=== PATIENT | female | born 1995 | race Caucasian/White ===

== ENCOUNTER 2017-01-13 10:16 | Emergency (ER) | payer OTHER ==
[2017-01-13 10:35] VITALS: BP 136/85
--- NOTE | 2017-01-13 10:42 | EDM.PDOC ---
ED HPI GENERAL MEDICAL PROBLEM - General Chief Complaint: Cardiovascular Problem Stated Complaint: RACING HEARTBEAT/SHAKY/WEARING A MONITOR Time Seen by Provider: 01/13/17 10:45 Source of Information: Reports: Patient - History of Present Illness INITIAL COMMENTS - FREE TEXT/NARRATIVE: 21-year-old female presents to the ER today for evaluation of palpitations and shortness of breath. Patient reports started approximately one month ago she was on a work trip and has these episodes have occurred intermittently since that time. She reports it has been worsening over the past week. Today's episode began while she was working today at a [employer], she was driven here by her boss. Patient states that she feels short of breath and like her heart is racing. She denies any nausea or diaphoresis. Denies any pain. She denies any chronic medical conditions though does have some anxiety and depression she has been on sertraline for approximately one year. She has been evaluated for these palpitations by Dr. Mejia and does have a Holter monitor on and followup scheduled with her. - Related Data Allergies Allergy/AdvReac Type Severity Reaction Status Date / Time No Known Allergies Allergy Verified 01/13/17 10:31 Home Meds: Home Meds LORazepam [Ativan] 0.5 mg PO BID PRN #20 tablet 01/13/17 [Rx] Sertraline [Zoloft] 100 mg PO DAILY 01/13/17 [History] Past Medical History - Past Health History Medical/Surgical History: Denies Medical/Surgical History Psychiatric History: Reports: Anxiety, Depression - Past Surgical History HEENT Surgical History: Reports: Oral Surgery GI Surgical History: Reports: Appendectomy Social & Family History - Tobacco Use Smoking Status *Q: Current Every Day Smoker Years of Tobacco use: 4 Packs/Tins Daily: 0.5 - Caffeine Use Caffeine Use: Reports: None - Alcohol Use Days Per Week of Alcohol Use: 0 - Recreational Drug Use Recreational Drug Use: No ED ROS GENERAL - Review of Systems Review Of Systems: See Below Constitutional: Reports: Fatigue. Denies: Fever, Chills, Weakness, Diaphoresis , Decreased Appetite, Weight Loss, Weight Gain HEENT: Reports: No Symptoms Respiratory: Reports: Shortness of Breath. Denies: Wheezing, Pleuritic Chest Pain, Cough Cardiovascular: Reports: Dyspnea on Exertion, Lightheadedness, Palpitations. Denies: Chest Pain GI/Abdominal: Reports: No Symptoms : Reports: No Symptoms Skin: Reports: No Symptoms Neurological: Reports: Dizziness. Denies: Confusion, Headache, Numbness, Paresthesia, Tingling, Tremors Psychiatric: Reports: Anxiety, Depression ED EXAM, GENERAL - Physical Exam Exam: See Below Exam Limited By: No Limitations General Appearance: Alert, WD/WN, Anxious, Mild Distress Eye Exam: Right Eye: Normal Inspection, PERRL, Vision Changes Ears: Normal External Exam, Normal Canal, Normal TMs Nose: Normal Inspection, Normal Mucosa, No Blood Throat/Mouth: Normal Inspection, Normal Oropharynx Respiratory/Chest: No Respiratory Distress, Lungs Clear, Normal Breath Sounds Cardiovascular: Normal Peripheral Pulses, Regular Rate, Rhythm, No Edema, No Murmur, No Rub GI/Abdominal: Normal Bowel Sounds, Soft, Non-Tender Neurological: Alert, Oriented, CN II-XII Intact, Normal Cognition, Other ( Patient anxious, becomes tearful when discussing her symptoms) Skin Exam: Warm, Dry, Intact EKG INTERPRETATION EKG Date: 01/13/17 Time: 10:32 Rhythm: NSR P-wave: present QRS: normal ST-T: normal EKG Interpretation Comments: Reviewed with Dr Kay Course - Vital Signs Last Recorded V/S: Last Vital Signs Temp 98.7 F 01/13/17 10:26 Pulse 69 01/13/17 10:26 Resp 22 H 01/13/17 10:26 BP 136/85 01/13/17 10:26 Pulse Ox 100 01/13/17 10:26 - Orders/Labs/Meds Orders: Active Orders 24 hr Category Date Time Status EKG 12 Lead [EKG Documentation Completion] [RC] STAT Care 01/13/17 10:42 Active CXR [Chest 2V] [CR] Stat Exams 01/13/17 10:51 Taken Labs: Laboratory Tests 01/13/17 01/13/17 01/13/17 Range/Units 11:10 11:10 11:10 WBC 7.68 (3.98-10.04) K/mm3 RBC 4.92 (3.98-5.22) M/mm3 Hgb 15.0 (11.2-15.7) gm/L Hct 43.6 (34.1-44.9) % MCV 88.6 (79.4-94.8) fl MCH 30.5 (25.6-32.2) pg MCHC 34.4 (32.2-35.5) g/dl RDW Std Deviation 39.7 (36.4-46.3) fL Plt Count 303 (182-369) K/mm3 MPV 10.7 (9.4-12.3) fl Neutrophils % (Manual) 60 (40-60) % Band Neutrophils % 0 (0-10) % Lymphocytes % (Manual) 37 (20-40) % Atypical Lymphs % 0 % Monocytes % (Manual) 3 (2-10) % Eosinophils % (Manual) 0 L (0.7-5.8) % Basophils % (Manual) 0 L (0.1-1.2) Platelet Estimate Adequate RBC Morph Comment Normal D-Dimer, Quantitative < 0.19 L (0.19-0.59) mg/L Sodium 140 (136-145) mEq/L Potassium 3.7 (3.5-5.1) mEq/L Chloride 107 (98-107) mEq/L Carbon Dioxide 22 (21-32) mEq/L Anion Gap 14.7 (5-15) BUN 7 (7-18) mg/dL Creatinine 0.8 (0.55-1.02) mg/dL Est Cr Clr Drug Dosing 95.25 mL/min Estimated GFR (MDRD) > 60 (>60) mL/min BUN/Creatinine Ratio 8.8 L (14-18) Glucose 96 (74-106) mg/dL Calcium 9.6 (8.5-10.1) mg/dL Total Bilirubin 0.5 (0.2-1.0) mg/dL AST 21 (15-37) U/L ALT 54 (14-59) U/L Alkaline Phosphatase 46 (46-116) U/L Troponin I < 0.017 (0.00-0.056) ng/mL C-Reactive Protein < 0.2 (<1.0) mg/dL Total Protein 7.8 (6.4-8.2) g/dl Albumin 4.4 (3.4-5.0) g/dl Globulin 3.4 gm/dL Albumin/Globulin Ratio 1.3 (1-2) Ethyl Alcohol 0.01 (0.00) gm% Meds: Medications Discontinued Medications Generic Name Dose Route Start Last Admin Trade Name Freq PRN Reason Stop Dose Admin Lorazepam 0.5 mg 01/13/17 10:50 01/13/17 11:06 Ativan PO 01/13/17 10:51 0.5 mg ONETIME ONE Administration - Re-Assessments/Exams Free Text/Narrative Re-Assessment/Exam: Clinical exam was unremarkable, the patient was quite anxious and did become tearful when discussing her symptoms. Chest x-ray will was normal, official report is pending. EKG demonstrates normal sinus rhythm with a rate of 53. CBC/CMP unremarkable. Troponin and d-dimer were negative. ETOH 0.01 and drug screen is still pending. Patient's symptoms completely resolved with 1 mg PO Ativan. Upon recheck she was feeling significantly better and was quite happy and interactive. She states that she finally feels "normal" and like could sleep and reports that she has not been able to do this for several weeks. Discussed with patient that I do feel that her symptoms are triggered by her anxiety. Will give her a small quantity of Ativan to be used on an as-needed basis, risks and side effects of this were discussed at length including addiction and drowsiness. I did advise her to continue wearing her Holter monitor as ordered. Patient is to followup as scheduled with her PCP to discuss long-term treatment of her anxiety. 01/13/17 12:36 Departure - Departure Time of Disposition: 12:28 Disposition: Home, Self-Care 01 Clinical Impression: Anxiety Prescriptions: LORazepam [Ativan] 0.5 mg PO BID PRN #20 tablet PRN Reason: Anxiety Referrals: Alma Fraire MD [Primary Care Provider] - Forms: ED Department Discharge Additional Instructions: Your chest x-ray, EKG and lab work were all normal today. I do suspect that it is your anxiety that is causing your symptoms. You may take the lorazepam prescription provided today on an as-needed basis for severe anxiety. You need to followup with your primary provider to discuss further treatment of the anxiety as these cannot be taken on a regular or long-term basis. Caution driving or operating machinery when taking this medication. Followup with Dr. Mejia as scheduled or certainly return to the ER if symptoms worsen. - My Orders Last 24 Hours: My Active Orders 01/13/17 10:42 EKG 12 Lead [EKG Documentation Completion] [RC] STAT 01/13/17 10:51 CXR [Chest 2V] [CR] Stat - Assessment/Plan Last 24 Hours: My Active Orders 01/13/17 10:42 EKG 12 Lead [EKG Documentation Completion] [RC] STAT 01/13/17 10:51 CXR [Chest 2V] [CR] Stat
[2017-01-13] MEDS ORDERED: LORazepam 0.5 MG Tab PO ONE (10:50)
--- NOTE | 2017-01-13 15:07 | CR ---
Chest: Two views of the chest were obtained. Comparison: No previous chest x-ray. Heart size and mediastinum are normal. Lungs are clear. Bony structures appear within normal limits for the patient's age. Impression: 1. Nothing acute is seen on two-view chest x-ray. Diagnostic code #1
== END 2017-01-13 12:46 | disposition home or self-care (01) ==
LOC: JD.ED 10:16
DX: F41.9 Anxiety disorder, unspecified (principal); F32.9 Major depressive disorder, single episode, unspecified; F17.210 Nicotine dependence, cigarettes, uncomplicated; Z90.49 Acquired absence of other specified parts of digestive tract; Z79.899 Other long term (current) drug therapy
CPT/HCPCS: 36415; 71020; 80053; 84484; 85025; 85379; 86140; 93005; 99285; A9270; G0480; 99283

== ENCOUNTER 2017-03-08 08:40 | Emergency (ER) | payer OTHER ==
[2017-03-08 08:47] VITALS: BP 158/96
[2017-03-08] MEDS ORDERED: diphenhydrAMINE 50 MG/ML SDV IVPUSH ONE (09:35)
[2017-03-08] MEDS ORDERED: Ketorolac 30 MG/ML SDV IVPUSH ONE (09:35)
[2017-03-08] MEDS ORDERED: Prochlorperazine 10 MG/2 ML SDV IVPUSH ONE (09:35)
[2017-03-08] MEDS ORDERED: Sodium Chloride 0.9% 1,000 ML IV ONE (09:36)
--- NOTE | 2017-03-08 09:40 | EDM.PDOC ---
ED HPI GENERAL MEDICAL PROBLEM - General Chief Complaint: Headache Stated Complaint: HEADACHE/STIFF NECK/FEVER MONDAY Time Seen by Provider: 03/08/17 08:52 Source of Information: Reports: Patient History Limitations: Reports: No Limitations - History of Present Illness INITIAL COMMENTS - FREE TEXT/NARRATIVE: The patient is a 21-year-old female with a chief complaint of headache. She states that she has a history of very frequent headaches. She usually gets headaches about 3 times a week. Normally she can control them at home with Excedrin. However today she has a severe headache. She states that she's had it for about 4 days now and it just is not getting better. States that it feels similar to her usual headaches but worse. It starts in the front of her head and moves towards the back of her head and goes down her neck. It's throbbing. Also sharp. Constant. She's had some nausea and 2 episodes of vomiting. Feels like she has some blurry vision. Also has photophobia. No fever or recent illness. No sore throat. She's tried Imitrex and Excedrin with no relief. Headache Pain Score (Numeric/FACES): 6 - Related Data Allergies Allergy/AdvReac Type Severity Reaction Status Date / Time No Known Allergies Allergy Verified 03/08/17 08:47 Home Meds: Home Meds Venlafaxine [Effexor] 75 mg PO DAILY 03/08/17 [History] Past Medical History - Past Health History Medical/Surgical History: Denies Medical/Surgical History Psychiatric History: Reports: Anxiety, Depression - Past Surgical History HEENT Surgical History: Reports: Oral Surgery, Tonsillectomy GI Surgical History: Reports: Appendectomy Social & Family History - Tobacco Use Smoking Status *Q: Current Every Day Smoker Years of Tobacco use: 4 Packs/Tins Daily: 0.5 - Caffeine Use Caffeine Use: Reports: None - Alcohol Use Days Per Week of Alcohol Use: 0 - Recreational Drug Use Recreational Drug Use: No ED ROS GENERAL - Review of Systems Review Of Systems: See Below Constitutional: Denies: Fever HEENT: Denies: Throat Pain Respiratory: Denies: Shortness of Breath Cardiovascular: Reports: No Symptoms GI/Abdominal: Reports: Nausea Musculoskeletal: Reports: Neck Pain Skin: Reports: No Symptoms Neurological: Reports: Headache - Physical Exam Exam: See Below Exam Limited By: No Limitations General Appearance: Alert, Anxious, Mild Distress Eye Exam: Bilateral Eye: EOMI, PERRL Ears: Normal External Exam Nose: Normal Inspection, Normal Mucosa, No Blood Throat/Mouth: Normal Inspection, Normal Lips, Normal Oropharynx, Normal Voice, No Airway Compromise Head Exam: Atraumatic, Normocephalic Neck: Normal Inspection, Supple, Non-Tender, Full Range of Motion Respiratory/Chest: No Respiratory Distress, Lungs Clear, Normal Breath Sounds, Chest Non-Tender Cardiovascular: Normal Peripheral Pulses, Regular Rate, Rhythm, No Murmur GI/Abdominal: Soft, Non-Tender, No Distention. No: Rebound Neuro Exam (Abbreviated): Alert, Oriented, CN II-XII Intact, Normal Cognition, No Motor/Sensory Deficits Back Exam: Normal Inspection Extremities: Normal Inspection Psychiatric: Normal Affect, Normal Mood Skin Exam: Warm, Dry, Intact, Normal Color, No Rash Course - Vital Signs Last Recorded V/S: Last Vital Signs Temp 36.6 C 03/08/17 08:44 Pulse 56 L 03/08/17 10:06 Resp 16 03/08/17 10:06 BP 158/96 H 03/08/17 08:44 Pulse Ox 99 03/08/17 10:06 - Orders/Labs/Meds Orders: Active Orders 24 hr Category Date Time Status Sodium Chloride 0.9% [Normal Saline] 1,000 ml Med 03/08/17 09:36 Active IV ONETIME Medication Orders Sodium Chloride (Normal Saline) 1,000 mls @ 999 mls/hr IV ONETIME ONE Stop: 03/08/17 10:36 Last Admin: 03/08/17 09:42 Dose: 999 mls/hr Labs: Laboratory Tests 03/08/17 Range/Units 09:05 Urine HCG, Qual Negative (NEGATIVE) Meds: Medications Generic Name Dose Route Start Last Admin Trade Name Freq PRN Reason Stop Dose Admin Sodium Chloride 1,000 mls @ 999 mls/hr 03/08/17 09:36 03/08/17 09:42 Normal Saline IV 03/08/17 10:36 999 mls/hr ONETIME ONE Administration Discontinued Medications Generic Name Dose Route Start Last Admin Trade Name Freq PRN Reason Stop Dose Admin Diphenhydramine HCl 50 mg 03/08/17 09:35 03/08/17 09:42 Benadryl IVPUSH 03/08/17 09:36 50 mg ONETIME ONE Administration Ketorolac Tromethamine 30 mg 03/08/17 09:35 03/08/17 09:42 Toradol IVPUSH 03/08/17 09:36 30 mg ONETIME ONE Administration Lorazepam 1 mg 03/08/17 10:01 03/08/17 10:05 Ativan IVPUSH 03/08/17 10:02 Not Given STAT STA Prochlorperazine Edisylate 10 mg 03/08/17 09:35 03/08/17 09:42 Compazine IVPUSH 03/08/17 09:36 10 mg ONETIME ONE Administration - Re-Assessments/Exams Free Text/Narrative Re-Assessment/Exam: 03/08/17 10:07 Patient feeling anxious/restless after receiving compazine, benadryl, toradol. I suspect this is akisthesia reaction to compazine. Discussed this with patient and offered ativan. She prefers to leave. She does feel like her headache is improved. Discussed PCP f/u and return precautions, she understood. Departure - Departure Time of Disposition: 10:04 Disposition: Home, Self-Care 01 Clinical Impression: Migraine - Discharge Information Instructions: Migraine Headache, [id number] Referrals: Alma Fraire MD [Primary Care Provider] - Forms: ED Department Discharge Additional Instructions: 1. Continue your usual medications for headache 2. Follow up with your primary doctor as soon as possible for further care 3. Return to the ED if you have a severe headache that doesn't improve with your usual medications - My Orders Last 24 Hours: My Active Orders 03/08/17 09:36 Sodium Chloride 0.9% [Normal Saline] 1,000 ml IV ONETIME - Assessment/Plan Last 24 Hours: My Active Orders 03/08/17 09:36 Sodium Chloride 0.9% [Normal Saline] 1,000 ml IV ONETIME
[2017-03-08] MEDS ORDERED: LORazepam 2 MG/ML MDV IVPUSH STA (10:01)
== END 2017-03-08 10:10 | disposition home or self-care (01) ==
LOC: JD.ED 08:40
DX: G43.909 Migraine, unspecified, not intractable, without status migrainosus (principal); F17.210 Nicotine dependence, cigarettes, uncomplicated; F41.9 Anxiety disorder, unspecified; F32.9 Major depressive disorder, single episode, unspecified; Z90.49 Acquired absence of other specified parts of digestive tract; Z98.890 Other specified postprocedural states; Z79.899 Other long term (current) drug therapy
CPT/HCPCS: 81025; 96374; 96375; 99284; J0780; J1200; J1885; J7040